=== PATIENT | male | born 1975 | race Caucasian/White ===

== ENCOUNTER 2017-04-11 13:03 | Emergency (ER) | payer SELFPAY ==
[2017-04-11 13:07] VITALS: BP 117/72; BMI 23.6
[2017-04-11 14:04] LABS: BILIRUBIN,URINE NEGATIVE (NEGATIVE); BLOOD/HEMOGLOBIN,URINE NEGATIVE (NEGATIVE); GLUCOSE, URINE NEGATIVE (NEGATIVE); KETONES,URINE NEGATIVE (NEGATIVE); LEUKOCYTE ESTERASE ,URINE 3+ (NEGATIVE); NITRITES,URINE NEGATIVE (NEGATIVE); PROTEIN,URINE NEGATIVE (NEGATIVE); UROBILINOGEN,URINE NORMAL (NORMAL)
[2017-04-11 14:04] LABS: BASOPHILS # (AUTO) 0.1 X10^3/uL (0.0-0.1); BASOPHILS % (AUTO) 0.9 % (0.2-1.0); EOSINOPHILS # (AUTO) 0.2 x10^3/uL (0.0-0.2); HEMATOCRIT 41.7 % (42.0-54.0); HEMOGLOBIN 14.4 g/dL (13.5-18.0); LYMPHOCYTES # (AUTO) 2.3 X10^3/uL (1.3-2.9); LYMPHOCYTES % (AUTO) 30.5 % (21.0-51.0); MEAN CORPUSCULAR HEMOGLOBIN 30.6 pg (27.0-34.0); MEAN CORPUSCULAR HGB CONC 34.6 g/dL (33.0-35.0); MEAN CORPUSCULAR VOLUME 88.5 fL (80.0-100.0); MEAN PLATELET VOLUME 8.4 fL (7.4-11.0); MONOCYTES # (AUTO) 0.6 x10^3/uL (0.3-0.8); MONOCYTES % (AUTO) 8.1 % (0.0-13.0); NEUTROPHILS # (AUTO) 4.3 x10^3/uL (2.2-4.8); NEUTROPHILS % (AUTO) 57.5 % (42.0-75.0); PLATELET COUNT 310 X10^3/uL (150.0-450.0); RED BLOOD COUNT 4.71 X10^6/uL (4.7-6.0); RED CELL DISTRIBUTION WIDTH 14.9 % (11.6-16.5); WHITE BLOOD COUNT 7.5 X10^3/uL (3.6-10.0)
--- NOTE | 2017-04-11 14:05 | RAD ---
Examination: Chest x-ray. Clinical History: Chronic cough. Technique: PA and lateral views of the chest were obtained. Comparison: None available. Findings: The cardiac and mediastinal contours are within normal limits. No pneumothorax or pleural effusion is noted. The lungs appear clear. Minor degenerative changes are noted in the spine. No acute osseous abnormality is noted. Impression: 1. No acute disease. Reported By:
--- NOTE | 2017-04-11 14:10 | DR.GENAD ---
HPI - PCP Primary Care Physician: nfd - Complaint/Symptoms Chief Complaint Doctors Comments: I agree with statement. Patient reports to being a recovering alcoholic and is a two pack per day smoker. He denies fever , vomitn or diarrhea. Chief Complaint:: patient stated he was at work this morning 730 and his vision was blurred and he was shaking. he also stated he stays thirsty all the time.. - Source History Provided: Patient - Mode of Arrival Mode of Arrival: Ambulatory - Timing Onset of Chief Complaint: 04/11/17 PMH - PMH Past Medical History: No Past Surgical History: Yes Surgical History: Ortho Surgery Past Surgical History Comment: eye surgery - Family History History of Family Medical Conditions: No - Social History Does patient currently use any type of tobacco product: Yes Have you used tobacco products in the last 12 months: Yes Type of Tobacco Use: Cigarettes How many years tobacco product used: 30 Does any household member use tobacco: No Alcohol Use: None Do you use any recreational Drugs:: No Lives With: Family Lives Where: Home - infectious screening In the last 2 months have you had wt loss of >10#?: NO Have you had fever, night sweats or hemotysis?: No Have you traveled outside the country in the last 6 months?: No Isolation: Standard ROS - Review of Systems Eyes: No Symptoms Reported ENTM: No Symptoms Reported Respiratoy: No Symptoms Reported Cardiovascular: No Symptoms Reported Gastrointestinal/Abdominal: No Symptoms Reported Genitourinary: No Symptoms Reported Neurological: No Symptoms Reported Musculoskeletal: No Symptoms Reported Integumentary: No Symptoms Reported Hematologic/Lymphatic: No Symptoms Reported Endocrine: No Symptoms Reported Psychiatric: No Symptoms Reported All Other Systems: Reviewed and Negative PE - Vital Signs Vitals: Temperature 98.7 F Pulse Rate 91 Respiratory Rate 16 Blood Pressure 117/72 O2 Sat by Pulse Oximetry 100 - General Limitations: No Limitations General Appearance: Alert, In No Apparent Distress, Appears Intoxicated - Head Head Exam: Normal Inspection, Atraumatic - Eyes Eye exam: Normal Appearance, PERRL, EOMI - ENT ENT Exam: Normal Exam External Ear Exam: Normal External Inspection TM/Canal Exam: Bilateral Normal Nose Exam: Normal Nose Exam Mouth Exam: Normal Inspection Throat Exam: Normal Inspection - Neck Neck Exam: Normal Inspection - Chest Chest Inspection: Normal Inspection - Respiratory Respiratory Exam: Normal Lung Sounds Bilat Respiratory Exam: Bilateral Clear to Auscultation - Cardiovascular Cardiovascular Exam: Regular Rate, Normal Rhythm - Abdominal Exam Abdominal Exam: Normal Inspection - Extremities Extremities Exam: Normal Inspection, Full ROM - Back Back Exam: Normal Inspection - Neurologic Neurological Exam: Alert, Oriented X3, CN II-XII Intact - Psychiatric Psychiatric Exam: Normal Affect, Normal Mood - Skin Skin Exam: Warm, Dry ROR - Labs Reviewed Laboratory Results Reviewed?: Yes (ua: wbc 11-20, 3+leuk/ visual acuity 20/80 L ; 20/70 R, 20/100 B) Result Diagrams: 04/11/17 13:47 04/11/17 13:47 Laboratory: WBC 7.5 X10^3/uL (3.6-10.0) 04/11/17 13:47 RBC 4.71 X10^6/uL (4.7-6.0) 04/11/17 13:47 Hgb 14.4 g/dL (13.5-18.0) 04/11/17 13:47 Hct 41.7 % (42.0-54.0) L 04/11/17 13:47 MCV 88.5 fL (80.0-100.0) 04/11/17 13:47 MCH 30.6 pg (27.0-34.0) 04/11/17 13:47 MCHC 34.6 g/dL (33.0-35.0) 04/11/17 13:47 RDW 14.9 % (11.6-16.5) 04/11/17 13:47 Plt Count 310 X10^3/uL (150.0-450.0) 04/11/17 13:47 MPV 8.4 fL (7.4-11.0) 04/11/17 13:47 Neut % 57.5 % (42.0-75.0) 04/11/17 13:47 Lymph % 30.5 % (21.0-51.0) 04/11/17 13:47 [place] % 8.1 % (0.0-13.0) 04/11/17 13:47 Eos % 3.0 % (0.9-2.9) H 04/11/17 13:47 Baso % 0.9 % (0.2-1.0) 04/11/17 13:47 Neut # 4.3 x10^3/uL (2.2-4.8) 04/11/17 13:47 Lymph # 2.3 X10^3/uL (1.3-2.9) 04/11/17 13:47 [place] # 0.6 x10^3/uL (0.3-0.8) 04/11/17 13:47 Eos # 0.2 x10^3/uL (0.0-0.2) 04/11/17 13:47 Baso # 0.1 X10^3/uL (0.0-0.1) 04/11/17 13:47 Absolute Nucleated RBC 0.0 /100WBC 04/11/17 13:47 Sodium 136 mmol/L (136-145) 04/11/17 13:47 Corrected Sodium TNP 04/11/17 13:47 Potassium 3.5 mmol/L (3.5-5.1) 04/11/17 13:47 Chloride 102 mmol/L (98-107) 04/11/17 13:47 Carbon Dioxide 28.4 mmol/L (21-32) 04/11/17 13:47 BUN 7 mg/dL (7-18) 04/11/17 13:47 Creatinine 0.92 mg/dL (0.70-1.30) 04/11/17 13:47 Est GFR (MDRD) Af Amer > 60 (>60) 04/11/17 13:47 Est GFR (MDRD) Non-Af > 60 (>60) 04/11/17 13:47 Glucose 96 mg/dL (65-99) 04/11/17 13:47 Calcium 9.3 mg/dL (8.5-10.1) 04/11/17 13:47 Corrected Calcium TNP 04/11/17 13:47 Total Bilirubin 0.30 mg/dL (0.2-1.0) 04/11/17 13:47 AST 21 Units/L (15-37) 04/11/17 13:47 ALT 26 Units/L (12-78) 04/11/17 13:47 Alkaline Phosphatase 75 Units/L (46-116) 04/11/17 13:47 Total Protein 7.6 g/dL (6.4-8.2) 04/11/17 13:47 Albumin 3.6 g/dL (3.4-5.0) 04/11/17 13:47 Globulin 4.0 g/dL (2.5-4.5) 04/11/17 13:47 Albumin/Globulin Ratio 0.9 Ratio (1.1-2.1) L 04/11/17 13:47 Specimen Type Clean catch urine 04/11/17 13:35 Urine Color Yellow (YELLOW) 04/11/17 13:35 Urine Appearance Hazy (CLEAR) 04/11/17 13:35 Urine pH 5.0 (5.0 - 8.0) 04/11/17 13:35 Ur Specific [place] 1.020 (1.000-1.030) 04/11/17 13:35 Urine Protein Negative (NEGATIVE) 04/11/17 13:35 Urine Glucose (UA) Negative (NEGATIVE) 04/11/17 13:35 Urine Ketones Negative (NEGATIVE) 04/11/17 13:35 Urine Occult Blood Negative (NEGATIVE) 04/11/17 13:35 Urine Nitrite Negative (NEGATIVE) 04/11/17 13:35 Urine Bilirubin Negative (NEGATIVE) 04/11/17 13:35 Urine Urobilinogen Normal (NORMAL) 04/11/17 13:35 Ur Leukocyte Esterase 3+ (NEGATIVE) 04/11/17 13:35 Urine RBC 0-2 /HPF (NEGATIVE) 04/11/17 13:35 Urine WBC 11-20 /HPF (NEGATIVE) 04/11/17 13:35 Ur Squamous Epith Cells Rare /HPF (NEGATIVE) 04/11/17 13:35 Urine Bacteria Trace /HPF (NEGATIVE) 04/11/17 13:35 Ur Culture Indicated? Yes/culture set up 04/11/17 13:35 - XRAY XRAY Interpreted by: Radiologist (chest: negative) - Diagnosis Discharge Problem: Visual acuity reduced UTI (urinary tract infection) Qualifiers: Urinary tract infection type: acute cystitis Hematuria presence: without hematuria Qualified Code(s): N30.00 - Acute cystitis without hematuria - Discharge Plan Condition: Stable - Follow ups/Referrals Follow ups/Referrals: NFD,None [Primary Care Provider] - 3 days - Instructions
[2017-04-11 14:16] LABS: ALANINE AMINOTRANSFERASE 26 Units/L (12-78); ALBUMIN 3.6 g/dL (3.4-5.0); ALKALINE PHOSPHATASE 75 Units/L (46-116); ASPARTATE AMINO TRANSFERASE 21 Units/L (15-37); BLOOD UREA NITROGEN 7 mg/dL (7-18); CALCIUM 9.3 mg/dL (8.5-10.1); CARBON DIOXIDE 28.4 mmol/L (21-32); CHLORIDE 102 mmol/L (98-107); CREATININE 0.92 mg/dL (0.70-1.30); GLUCOSE 96 mg/dL (65-99); SODIUM 136 mmol/L (136-145); TOTAL PROTEIN 7.6 g/dL (6.4-8.2); eGFR BLACK RACES > 60 (>60); eGFR NON BLACK RACES > 60 (>60)
[2017-04-11 14:21] LABS: APPEARANCE,URINE HAZY (CLEAR); COLOR,URINE YELLOW (YELLOW); RBC,URINE 0-2 /HPF (NEGATIVE)
[2017-04-11 14:22] LABS: BACTERIA,URINE TRACE /HPF (NEGATIVE); SQUAMOUS EPITHELIAL CELL,UR RARE /HPF (NEGATIVE)
== END 2017-04-11 14:47 | disposition home or self-care (01) ==
LOC: ER 13:12
DX: N30.00 Acute cystitis without hematuria (principal); H53.8 Other visual disturbances
CPT/HCPCS: 36415; 71020; 80053; 81001; 85025; 87086; 99282